=== PATIENT | male | born 1950 | race Caucasian/White ===

== ENCOUNTER 2021-11-09 08:53 | Inpatient (IN) ==
[2021-11-09] MEDS ORDERED: ONDANSETRON 4 MG/2 ML VIAL ONE (09:05)
[2021-11-09] MEDS ORDERED: ONDANSETRON 4 MG/2 ML VIAL IV STA (09:15)
[2021-11-09 09:39] LABS: Basophils # 0.1 10*3/uL (0.0-0.2); Basophils % 0.5 % (0.0-0.8); Eosinophils # 0.7 10*3/uL (0.0-0.87); Eosinophils % 4.5 % (0.00-10.9); Hematocrit 45.8 VOL% (42.0-52.0); Hemoglobin 15.3 GM/DL (14.0-18.0); Immature Granulocytes % 0.3 %; Immature Granulocytes Absolute 0.04 #; Lymphocytes # 6.9 10*3/uL (1.4-4.0); Lymphocytes % 46.7 % (21.2-54.2); Mean Corpuscular HGB Conc 33.4 GM/DL (32-36); Mean Corpuscular Volume 90.2 FL (87-102); Mean Platelet Volume 11.2 FL (9.6-12.0); Monocytes # 1.3 10*3/uL (0.11-0.8); Monocytes % 8.9 % (1.7-12.7); Neutrophils % 39.1 % (38.7-73.9); Platelet Count 168 T/CUMM (130-400); Red Blood Count 5.08 MC/CUMM (3.8-5.5); White Blood Count 14.8 T/CUMM (4-12)
[2021-11-09 09:46] LABS: PT Patient Result 10.6 SECS (10.1-12.1); Partial Thromboplastin Time 28.5 SECS (23.7-32.9)
[2021-11-09 10:06] LABS: Calcium 9.9 MG/DL (8.5-10.1); Osmolality,Calculated 281.7 MOS/KG (273-304); Potassium 4.3 MMOL/L (3.5-5.1)
[2021-11-09 10:15] LABS: Anisocytosis 1+; Band Neutrophils 4 % (0-10); Eosinophils 3 % (0-10); Lymphocytes 43 % (20-55); Macrocytosis Slight; Platelet Estimate Normal; Total Cells Counted 100
[2021-11-09] MEDS ORDERED: GLUCAGON 1 MG VIAL IM PRN ×2 (12:15→12:20)
[2021-11-09] MEDS ORDERED: ACETAMINOPHEN 325 MG TABLET PO PRN (12:15)
[2021-11-09] MEDS ORDERED: DEXTROSE 10% 250 ML BAG IV PRN ×2 (12:21→12:32)
[2021-11-09 12:52] LABS: Mucus,Urine Occasional /LPF (Occasional)
[2021-11-09 12:53] LABS: Bilirubin,Urine Negative (Negative); Blood, Urine Trace mg/dL (Negative); Glucose,Urine (UA) 500 mg/dL (Negative); Ketones,Urine 15 mg/dL (Negative); Nitrite,Urine Negative (Negative); Protein,Urine 100 mg/dL (Negative); Urine Appearance Clear (Clear); Urine Color Yellow (Yellow); Urine Specific Gravity > 1.030 (1.001-1.035); Urine Urobilinogen 0.2 eU/dL (<2.0)
[2021-11-09 12:59] LABS: Barbiturates Screen,Urine Negative (Negative); Benzodiazepines Screen,Urine Negative (Negative); Cannabinoid Screen,Urine Negative (Negative); Opiate Screen,Urine Negative (Negative); Phencyclidine Screen,Urine Negative (Negative)
[2021-11-09] MEDS ORDERED: cefTRIAXone 1,000 MG in SODIUM CHLORIDE 0.9% 100 ML IV SCH (13:30)
[2021-11-09] MEDS ORDERED: hydrALAZINE 20 MG/1 ML VIAL IV PRN (13:32)
[2021-11-09] MEDS: LACTATED RINGERS 1,000 ML IV SCH (17:07)
[2021-11-09] MEDS: metFORMIN 500 MG TABLET PO SCH (17:12)
[2021-11-09] MEDS: ENOXAPARIN 40 MG/0.4 ML SYRINGE SUBCUT SCH ×2 (17:13→17:21)
[2021-11-09] MEDS: INSULIN REGULAR 100 UNIT/ML SUBCUT SCH ×2 (17:13→21:46)
[2021-11-09] MEDS: ONDANSETRON 4 MG/2 ML VIAL IV PRN (18:36)
[2021-11-09] MEDS ORDERED: SIMVASTATIN 40 MG TABLET PO SCH (21:00)
[2021-11-09] MEDS: GABAPENTIN 600 MG TABLET PO SCH (21:41)
[2021-11-10] MEDS: LACTATED RINGERS 1,000 ML IV SCH ×2 (01:06→07:16)
[2021-11-10] MEDS: ONDANSETRON 4 MG/2 ML VIAL IV PRN (04:10)
[2021-11-10 05:13] LABS: Basophils % 0.3 % (0.0-0.8); Eosinophils # 0.2 10*3/uL (0.0-0.87); Eosinophils % 2.2 % (0.00-10.9); Hemoglobin 14.1 GM/DL (14.0-18.0); Immature Granulocytes % 0.4 %; Immature Granulocytes Absolute 0.04 #; Lymphocytes # 2.7 10*3/uL (1.4-4.0); Lymphocytes % 29.5 % (21.2-54.2); Mean Corpuscular HGB Conc 33.6 GM/DL (32-36); Mean Platelet Volume 10.8 FL (9.6-12.0); Monocytes # 0.8 10*3/uL (0.11-0.8); Monocytes % 8.4 % (1.7-12.7); Neutrophils % 59.2 % (38.7-73.9); Platelet Count 146 T/CUMM (130-400); Red Blood Count 4.72 MC/CUMM (3.8-5.5); Red Cell Distribution Width 12.9 % (9.3-17.3); White Blood Count 9.3 T/CUMM (4-12)
[2021-11-10 05:31] LABS: Calcium 9.4 MG/DL (8.5-10.1); Osmolality,Calculated 283.7 MOS/KG (273-304); Potassium 3.8 MMOL/L (3.5-5.1)
[2021-11-10 07:59] LABS: Free T4 (Free Thyroxine) 1.2 NG/DL (0.76-1.46)
[2021-11-10 08:07] VITALS: BP 185/76
[2021-11-10] MEDS ORDERED: ASPIRIN EC 81 MG TABLET PO SCH (09:00)
[2021-11-10] MEDS ORDERED: hydroCHLOROthiazide 25 MG TABLET PO SCH (09:00)
[2021-11-10] MEDS ORDERED: sitaGLIPtin 100 MG TABLET PO SCH (09:00)
[2021-11-10] MEDS ORDERED: PANTOPRAZOLE 40 MG TABLET PO SCH (09:00)
[2021-11-10] MEDS ORDERED: LOSARTAN 50 MG TABLET PO SCH (09:00)
[2021-11-10] MEDS: metFORMIN 500 MG TABLET PO SCH (09:51)
[2021-11-10] MEDS: GABAPENTIN 600 MG TABLET PO SCH (09:53)
[2021-11-10] MEDS: INSULIN REGULAR 100 UNIT/ML SUBCUT SCH (09:55)
== END 2021-11-10 11:05 | disposition left against medical advice (07) | DRG 309 ==
LOC: N.EDINP 08:53 → N.ED 08:53 → N.TELES 13:03
PROVIDERS: ADMIT Emergency Medicine; ATTEND Emergency Medicine